=== PATIENT | female | born 2000 | race Caucasian/White ===

== ENCOUNTER → 2023-07-24 15:17 | Outpatient (CLI) | payer MEDICAID, SELFPAY ==
[2023-07-24] MEDS: Gadoterate meglumine 20 ML SYRINGE IVP (15:48)
[2023-07-24] MEDS: Normal Saline Flush 10 ML SYR IVP (15:54)
--- NOTE | 2023-07-24 17:00 | DI.MRI_ITS ---
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 CONTRAST MATERIAL: IV Contrast: 18 ML of Dotarem contrast administered. COMPARISON: No exams were available for comparison FINDINGS: BRAIN: VENTRICLES AND EXTRA AXIAL SPACES: There is a 8.6 AP by 5.7 transverse by 5.5 craniocaudad intraventr icular mass in the left lateral ventricle. It is hyperintense on the T2 weighted images and hypointe nse on the T1 weighted images. Mild heterogeneous enhancement is noted following contrast administra tion. The temporal horn and occipital horn of the left lateral ventricle are enlarged consistent wit h obstruction. There is a 1.5 cm rightward midline shift which results. HEMORRHAGE: There are foci of hypointensity within the mass on the gradient images suggesting prior h emorrhage. CEREBRAL PARENCHYMA: No focus of restricted diffusion to suggest acute infarct. No space-occupying le jagjit identified. There is mild hyperintense signal seen in the periventricular region of the left lat eral ventricle including the occipital and temporal horns. There is otherwise normal signal in the b rain parenchyma. MIDLINE SHIFT: Please see above under ventricles and extra-axial spaces. BRAINSTEM/CEREBELLUM: Normal. CALVARIUM: Normal. ENHANCEMENT: Please see above under ventricles and extra-axial spaces. VISUALIZED PARANASAL SINUSES/MASTOIDS: Clear. [place]: Normal flow void. PITUITARY GLAND: No evidence of a pituitary or suprasellar mass. OTHER FINDINGS: ORBITS: ORBITS: The anterior and posterior chambers of the globes are intact. The retrobulbar fat is unremark able. Extraocular muscles are unremarkable. OPTIC NERVES: The intracranial and extracranial portions of the optic nerves are within normal limits . Optic chiasm is within normal limits. No MRI evidence of optic neuritis identified. SOFT TISSUES: The superior opthalmic veins are unremarkable. Remaining soft tissues are unremarkable. OTHER FINDINGS: None. IMPRESSION: 1. 8.6 x 5.7 x 5.5 cm mass in the left lateral ventricle. There is obstruction with enlargement of t he left temporal horn and occipital horns. There is also a 1.5 cm rightward midline shift. Differen tial considerations include choroid plexus neoplasms, central neurocytoma, glial tumor, intraventricu lar meningioma. 2. The orbits and retro-orbital soft tissues are unremarkable. 3. Findings were discussed with Dr. Gaming at 5:49 p.m. on 07/24/2023. DATA REPOSITORY:
--- NOTE | 2023-07-24 17:33 | DI.VRAD_ITS ---
Addendum created by Anna Gracia MD on 07/24/2023 7:45:57 PM EDT: OC Support confirmed that at 7:45 PM EDT on 07/24/2023 Bk Roland s/w Dr Gaming has received the exam report, is aware of the findings, and indicated that no conference call was necessary to discuss the exam findings. Initial report created on 07/24/2023 5:32:44 PM EDT: PROCEDURE INFORMATION: Exam: MR Orbit Without and With Contrast Exam date and time: 07/24/2023 3:38 PM Age: 22 years old Clinical indication: Visual changes or disturbances; Sudden loss of vision; Patient HX: Patient woke up with vision loss black in right eye. Has improved throughout the day. Patients vision goes black when standing up, going on for a few weeks now TECHNIQUE: Imaging protocol: MR Orbit was performed without and with contrast. Contrast material: DOTAREM; Contrast volume: 18 ml; Contrast route: INTRAVENOUS (IV); COMPARISON: No relevant prior studies available. FINDINGS: Orbital cavities: The orbits are unremarkable as visualized. Paranasal sinuses: The visualized paranasal sinuses are well-aerated. There are no air fluid levels to suggest acute sinusitis. Brain: The visualized segments of the intracranial ICAs and vertebrobasilar arteries demonstrate flow voids consistent with patency without significant stenosis. Cerebral ventricles: There is a large relatively well-circumscribed mass in the LEFT lateral ventricle abutting and possibly arising from the septum pellucidum. The mass measures 8.8 x 5.7 x 5.4 cm in AP, transverse, and craniocaudal dimensions, respectively. The mass is heterogeneous in signal intensity but predominantly hypointense on T1 weighted images, hyperintense to brain parenchyma on T2 weighted images, and demonstrates heterogeneous mild enhancement. There is no restricted diffusion of the neoplasm or of the brain parenchyma to suggest acute infarction. Small cystic components may be present. There is enlargement of the occipital and temporal horns of the LEFT lateral ventricle due to trapping. There is mild subependymal resorption around the occipital horn and temporal horn of the LEFT lateral ventricle. There is midline shift of the septum pellucidum to the RIGHT by 18 mm. No other mass lesions are present. No intracranial hemorrhage. No extra-axial collections. Mastoid air cells: The tympanomastoid air cells are normally aerated as visualized. Bones/joints: No acute osseous findings. Soft tissues: The soft tissues are unremarkable. IMPRESSION: Large heterogeneous mildly enhancing mass in the LEFT lateral ventricle. 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 Other etiologies to consider include central neurocytoma subependymal giant cell astrocytoma and less likely choroid plexus papilloma. Dictated and Authenticated by: Anna Gracia MD. Ordering:ASHWIN NESBITT MD
== END ==
PROVIDERS: PCP Naturopath; Visit Provider Optometrist
DX: H47.11 Papilledema associated with increased intracranial pressure (principal)
CPT/HCPCS: 70553; 70543

== ENCOUNTER 2024-05-07 10:54 | Outpatient (REF) | payer MEDICAID, SELFPAY ==
--- NOTE | 2024-05-07 10:20 | PAPFT_PTH ---
PATIENT: Ronit Coburn LOC: [facility] U#:[id number] AGE/SX: 23/F ROOM: RE05/07/[address]: Sarai Cole NP : [id number] BED: DIS: 05/07/2024 SPEC #: [id number] RECD: 05/07/24 12:52 STATUS: ANTHONY REQ #: [id number] TAINA: 05/07/24 10:[address]: Sarai Cole NP DEPT: [facility] Cytology RECD BY: Kathie Roth ENTERED: 05/07/24 12:53 SP TYPE: PAPFT OTHR DR: Jose Fairchild Tissues: 1 - CX/ENDOCX FOR PAP SMEARS Procedures: PAP THIN PREP/[facility] Screening Comments: [id number]
== END 2024-05-07 10:55 | disposition home or self-care (01) ==
LOC: LBN 10:54
PROVIDERS: PCP Naturopath; Visit Provider Nurse Practitioner Women's Health
DX: Z12.4 Encounter for screening for malignant neoplasm of cervix (principal); R87.618 Other abnormal cytological findings on specimens from cervix uteri
CPT/HCPCS: 88142